=== PATIENT | female | born 1955 | race Caucasian/White ===

== ENCOUNTER 2017-08-27 13:10 | Day surgery (SDC) | payer OTHER ==
[2017-08-27] MEDS ORDERED: ACETAMINOPHEN 1,000 MG/100 ML BTL IV ONE (13:11)
[2017-08-27] MEDS ORDERED: PROPOFOL 10 MG/ML VIAL IV ONE (13:11)
[2017-08-27] MEDS ORDERED: HYDROMORPHONE HCL 2 MG/ML VIAL IV ONE (13:11)
[2017-08-27] MEDS ORDERED: LIDOCAINE 2% MDV (20MG/ML) 20ML VIAL IV ONE (13:11)
[2017-08-27] MEDS ORDERED: METOCLOPRAMIDE HCL 10 MG/2 ML VIAL IVP ONE (13:11)
[2017-08-27] MEDS ORDERED: KETOROLAC 30 MG/ML VIAL IVP ONE (13:11)
[2017-08-27] MEDS ORDERED: ONDANSETRON HCL IV 4 MG/2 ML VIAL IVP ONE (13:11)
[2017-08-27] MEDS ORDERED: CEFAZOLIN 2 Gram 2 GM/50 ML BAG IVPB ONE (13:11)
[2017-08-27] MEDS ORDERED: BUPIVACAINE 0.5% W/EPI MPF 30 ML VIAL IVP ONE (13:11)
--- NOTE | 2017-08-28 21:39 | Operative Note ---
DATE OF SURGERY: 08/27/2017 PREOPERATIVE DIAGNOSIS: INTERNAL DERANGEMENT OF THE RIGHT KNEE. POSTOPERATIVE DIAGNOSES: 1. MODERATE SYNOVITIS. 2. GRADE 3 CHONDROMALACIA PATELLA. 3. 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 4. 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 5. COMPLEX TEAR INVOLVING THE ANTERIOR MEDIAL AND POSTERIOR HORN OF THE LATERAL MENISCUS. 6. GRADE 3 CHONDROMALACIA OF THE LATERAL FEMORAL CONDYLE. PROCEDURE: 1. RIGHT KNEE ARTHROSCOPY WITH PARTIAL LATERAL MENISCECTOMY. 2. RIGHT KNEE ARTHROSCOPY WITH LIMITED SYNOVECTOMY. 3. RIGHT KNEE ARTHROSCOPY WITH CHONDROPLASTY OF THE PATELLA AND CHONDROPLASTY OF THE MEDIAL FEMORAL CONDYLE AND LATERAL FEMORAL CONDYLE. STAFF SURGEON: CANDE GARCIA M.D. ANESTHESIA: SPINAL. PREPARATION: CHLORAPREP. INDIVIDUAL CONSIDERATIONS: NONE. PROCEDURE: The patient was taken to the Operating Room and placed supine on the operating table. She had a successful induction of a general anesthetic. Her right lower extremity was prepped and then draped in the usual fashion. The patient had a superior lateral inflow cannula placed. The skin was infiltrated with 0.5% Marcaine with Epinephrine prior. A stab wound was made and a clear effusion was drained. The knee was then inflated with normal saline through the inflow cannula. An inferior medial and an inferior lateral portal were made in a similar fashion. The arthroscope was introduced through the inferior lateral portal up into the pouch. The patellofemoral joint showed moderate synovitis in the pouch but not as much in the gutters. The pouch was debrided with a shaver. She had grade 3 changes throughout the patella and fibrocartilage in the notch with little marginal cartilage loose laterally, which was debrided with a shaver. Medially, she had about a quarter size chondral lesion with a large unstable flap of cartilage on the medial femoral condyle centered at 45 degrees just lateral to the midline. This was debrided back with a shaver but luckily not down to bone. The cruciates were normal. In the lateral compartment, she had multiple complex flap tears involving the anterior, posterior, and lateral horn of the lateral meniscus with the biggest flap being posteromedially. This was all debrided back to a stable rim with basket forceps and a shaver. There were some grade 3 change of the lateral femoral condyle, which was smoothed. The popliteus tendon was intact. The knee was then thoroughly irrigated out with saline to remove loose floating debris. Portals were closed with samantha and 20 mL of 0.5% Marcaine with Epinephrine along with 4 mg of Morphine and 40 mg of DepoMedrol were injected into the knee and a sterile Bulkee compressive dressing was applied. The patient tolerated the procedures well. Needle and sponge counts were correct. Estimated blood loss was minimal and she was taken back to Recovery in good condition. There were no complications. JOB NUMBER: [id number] MTDD
== END 2017-08-27 17:40 | disposition home or self-care (01) ==
LOC: SUR 13:10
PROVIDERS: ATTEND Orthopaedic Surgery
DX: S83.271A Complex tear of lateral meniscus, current injury, right knee, initial encounter (principal); M22.41 Chondromalacia patellae, right knee; M94.261 Chondromalacia, right knee; M65.861 Other synovitis and tenosynovitis, right lower leg
CPT/HCPCS: 29881; 29875; 01400; J1885; J2405; J1170; J0690; J2765